=== PATIENT | female | born 1950 | race African-American/Black ===

== ENCOUNTER 2016-08-06 13:34 | Inpatient (IN) | payer BC, MEDICARE ==
[~2016-08-06] VITALS: Ht 167.6 cm; Wt 59.0 kg
[2016-08-06 13:40] VITALS: BP 144/82
[2016-08-06 14:10] LABS: BASOPHILS % (AUTO) 0.7 % (0.0-2.0); EOSINOPHILS % (AUTO) 2.7 % (0.0-3.0); LYMPHOCYTES % (AUTO) 35.4 % (20.0-45.0); MEAN CORPUSCULAR HEMOGLOBIN 31.5 PG (27.0-31.0); MEAN CORPUSCULAR HGB CONC 32.2 G/DL (32.0-36.0); MEAN CORPUSCULAR VOLUME 98 FL (80-99); MEAN PLATELET VOLUME 10.4 FL (6.5-10.1); MONOCYTES % (AUTO) 8.5 % (1.0-10.0); NEUTROPHILS % (AUTO) 52.8 % (45.0-75.0); PLATELET COUNT 170 K/UL (150-450); RED BLOOD COUNT 3.97 M/UL (4.20-5.40); RED CELL DISTRIBUTION WIDTH 12.2 % (11.6-14.8); WHITE BLOOD COUNT 5.1 K/UL (4.8-10.8)
--- NOTE | 2016-08-06 14:16 | Diagnostic Imaging Report ---
Indication: Chest pain Technique: Single portable AP view of the chest. Findings: Comparison: None. The bones and extra pulmonary soft tissues, cardiomediastinal silhouette, pulmonary vasculature and parenchyma, and pleural surfaces are unremarkable. IMPRESSION: Negative portable AP chest.
[2016-08-06 14:22] LABS: PROTHROMBIN TIME 10.5 SEC (9.30-11.50)
[2016-08-06 14:28] LABS: TROPONIN I < 0.30 ng/mL (<=0.30)
[2016-08-06 14:32] LABS: ALANINE AMINOTRANSFERASE 33 U/L (3-33); ALBUMIN/GLOBULIN RATIO 1.9 (1.0-2.7); ANION GAP 12 (5-15); ASPARTATE AMINO TRANSFERASE 25 U/L (5-40); CALCIUM 9.7 mg/dL (8.6-10.2); CARBON DIOXIDE 27 mEQ/L (20-30); CHLORIDE 104 mEQ/L (98-107); CREATININE 0.9 mg/dL (0.5-0.9); GLOMERULAR FILTRATION RATE > 60 mL/min (>60); HEMOLYSIS 3; LIPASE 47 U/L (< 60); SODIUM 143 mEQ/L (135-145); TOTAL PROTEIN 6.1 g/dL (6.6-8.7)
[2016-08-06 14:43] LABS: CKMB < 1.5 ng/mL (< 3.8)
[2016-08-06] MEDS ORDERED: Nitroglycerin Subl 0.4mg tab (Bottle Of 25) SL PRN ×2 (14:45→18:00)
[2016-08-06 15:30] VITALS: BP 145/67
[2016-08-06] MEDS ORDERED: NKM (16:07)
[2016-08-06 17:30] VITALS: BP 128/72
[2016-08-06] MEDS ORDERED: DuoNeb 0.5-3(2.5)mg/3ml neb HHN PRN (18:00)
[2016-08-06] MEDS ORDERED: Miralax 17gm pkt ORAL PRN (18:00)
[2016-08-06] MEDS ORDERED: Morphine Sulfate 2mg/ml Inj IVP PRN (18:00)
[2016-08-06] MEDS ORDERED: Ketorolac 30mg Inj IV PRN (18:00)
[2016-08-06] MEDS ORDERED: Enalaprilat 2.5mg/2ml Inj IV PRN (18:00)
[2016-08-06] MEDS ORDERED: Diltiazem 25mg/5ml IV PRN (18:00)
[2016-08-06 18:54] VITALS: BP 149/66
--- NOTE | 2016-08-06 19:01 | Emergency Room Report ---
History of Present Illness General Chief Complaint: Chest Pain Source: Patient Present Illness HPI 66-year-old female presents to ED evaluation. Patient states she's been having chest pain for the last few weeks. On and off. Pressure-like, left-sided, radiating down the left arm. Denies shortness of breath. Denies fevers chills or cough. Patient states she had similar episodes in the past and was told that she has an arrhythmia. Is currently not on any medications. Denies smoking or drug use. No aggravating relieving factors. Denies any other associated symptom Allergies: Coded Allergies: No Known Allergies (Unverified , 08/06/16) Patient History Past Medical History: none Past Surgical History: none Pertinent Family History: none Social History: Denies: alcohol use, drug use, smoking Now: No Immunizations: UTD Reviewed Nursing Documentation: PMH: Agreed, PSxH: Agreed Nursing Documentation-PMH Past Medical History: No Stated History Review of Systems All Other Systems: negative except mentioned in HPI Physical Exam Vital Signs Date Time Temp Pulse Resp B/P Pulse Ox O2 Delivery O2 Flow Rate FiO2 08/06/16 13:39 98.1 78 16 151/90 97 Room Air Sp02 EP Interpretation: reviewed, normal General Appearance: no apparent distress, alert, GCS 15, non-toxic Head: normocephalic, atraumatic Eyes: bilateral eye PERRL, bilateral eye normal inspection ENT: hearing grossly normal, normal pharynx, no angioedema, normal voice Neck: full range of motion, supple/symm/no masses Respiratory: chest non-tender, lungs clear, normal breath sounds, speaking full sentences Cardiovascular #1: regular rate, rhythm, no edema Cardiovascular #2: 2+ carotid (R), 2+ carotid (L), 2+ radial (R), 2+ radial (L) , 2+ dorsalis pedis (R), 2+ dorsalis pedis (L) Gastrointestinal: normal bowel sounds, non tender, soft, non-distended, no guarding, no rebound Rectal: deferred Genitourinary: normal inspection, no CVA tenderness Musculoskeletal: back normal, gait/station normal, normal range of motion, non- tender Neurologic: alert, oriented x3, responsive, motor strength/tone normal, sensory intact, speech normal Psychiatric: judgement/insight normal, memory normal, mood/affect normal, no suicidal/homicidal ideation Reflexes: 3+ bicep (R), 3+ bicep (L), 3+ tricep (R), 3+ tricep (L), 3+ knee (R) , 3+ knee (L) Skin: normal color, no rash, warm/dry, well hydrated Lymphatic: no adenopathy Medical Decision Making Diagnostic Impression: Primary Impression: Acute coronary syndrome Additional Impression: PVC (premature ventricular contraction) ER Course Hospital Course 66-year-old female presents ED complaining of left-sided chest pain Differential diagnoses include: VT/unstable angina, contusion, muscle strain, PTX, rib fracture Clinical course Patient placed on stretcher. on conveyor monitor. After initial history and physical I ordered labs, EKG, chest x-ray, NTG labs reviewed- no leukocytosis, hb/hct stable, electrolytes ok, trop negative EKG - PVCs, no acute ischemic changes Chest x-ray- unremarkable Given that chest pain improved with nitroglycerin and given presentation I believe patient should be admitted for observation. Given aspirin Case discussed with Dr. Alvarez and he agreed to accept the patient to his service for further care and support I. I feel this is a highly complex case requiring extensive working including EKG/Rhythm strip, Xray/CT/US, Blood/urine lab work, repeat exams while in ED, and administration of strong opiates/narcotics for pain control, admission to hospital or close patient follow up. Diagnosis - ACS, PVCs admitted to telemetry in serious condition Labs Test 08/06/16 13:55 White Blood Count 5.1 K/UL (4.8-10.8) Red Blood Count 3.97 M/UL (4.20-5.40) Hemoglobin 12.5 G/DL (12.0-16.0) Hematocrit 38.9 % (37.0-47.0) Mean Corpuscular Volume 98 FL (80-99) Mean Corpuscular Hemoglobin 31.5 PG (27.0-31.0) Mean Corpuscular Hemoglobin Concent 32.2 G/DL (32.0-36.0) Red Cell Distribution Width 12.2 % (11.6-14.8) Platelet Count 170 K/UL (150-450) Mean Platelet Volume 10.4 FL (6.5-10.1) Neutrophils (%) (Auto) 52.8 % (45.0-75.0) Lymphocytes (%) (Auto) 35.4 % (20.0-45.0) Monocytes (%) (Auto) 8.5 % (1.0-10.0) Eosinophils (%) (Auto) 2.7 % (0.0-3.0) Basophils (%) (Auto) 0.7 % (0.0-2.0) Prothrombin Time 10.5 SEC (9.30-11.50) Prothromb Time International Ratio 1.0 (0.9-1.1) Activated Partial Thromboplast Time 25 SEC (23-33) Sodium Level 143 mEQ/L (135-145) Potassium Level 4.0 mEQ/L (3.4-4.9) Chloride Level 104 mEQ/L (98-107) Carbon Dioxide Level 27 mEQ/L (20-30) Anion Gap 12 (5-15) Blood Urea Nitrogen 18 mg/dL (7-23) Creatinine 0.9 mg/dL (0.5-0.9) Estimat Glomerular Filtration Rate > 60 mL/min (>60) Glucose Level 117 mg/dL (74-106) Calcium Level 9.7 mg/dL (8.6-10.2) Total Bilirubin 0.3 mg/dL (0.0-1.2) Aspartate Amino Transf (AST/SGOT) 25 U/L (5-40) Alanine Aminotransferase (ALT/SGPT) 33 U/L (3-33) Alkaline Phosphatase 76 U/L (35-104) Total Creatine Kinase 66 U/L (26-140) Creatine Kinase MB < 1.5 ng/mL (< 3.8) Creatine Kinase MB Relative Index Troponin I < 0.30 ng/mL (<=0.30) Pro-B-Type Natriuretic Peptide 382 pg/mL (0-125) Total Protein 6.1 g/dL (6.6-8.7) Albumin 4.0 g/dL (3.5-5.2) Globulin 2.1 g/dL Albumin/Globulin Ratio 1.9 (1.0-2.7) Lipase 47 U/L (< 60) EKG Diagnostic Results Rate: normal Rhythm: NSR ST Segments: no acute changes ASA given to the pt in ED: No Rhythm Strip Diag. Results EP Interpretation: yes Rhythm: NSR, no ectopy, other - PVCs Chest X-Ray Diagnostic Results EP Interpretation: No Findings: no consolidation, no effusion, no pneumothorax, no acute cardiopulmonary disease Number of Views: 1 Last Vital Signs Date Time Temp Pulse Resp B/P Pulse Ox O2 Delivery O2 Flow Rate FiO2 08/06/16 18:54 96.5 78 18 149/66 100 Room Air Status: improved Disposition: ADMITTED INPATIENT Condition: Serious Referrals: NOT CHOSEN IPA/,REFERRING (PCP) TILA SANABRIA M.D. August 06, 2016 19:01
[2016-08-06 20:00] VITALS: BP 157/99
[2016-08-06 20:56] LABS: TROPONIN I < 0.30 ng/mL (<=0.30)
[2016-08-06] MEDS: Heparin 5000 units/ml inj SUBQ SCH (21:00)
[2016-08-07 00:10] VITALS: BP 138/69
[2016-08-07 04:30] VITALS: BP 149/75
[2016-08-07 07:22] LABS: BASOPHILS % (AUTO) 1.1 % (0.0-2.0); LYMPHOCYTES % (AUTO) 43.4 % (20.0-45.0); MEAN CORPUSCULAR HEMOGLOBIN 31.6 PG (27.0-31.0); MEAN CORPUSCULAR VOLUME 99 FL (80-99); MONOCYTES % (AUTO) 8.6 % (1.0-10.0); NEUTROPHILS % (AUTO) 42.9 % (45.0-75.0); PLATELET COUNT 165 K/UL (150-450); RED BLOOD COUNT 4.13 M/UL (4.20-5.40); RED CELL DISTRIBUTION WIDTH 12.3 % (11.6-14.8); WHITE BLOOD COUNT 4.3 K/UL (4.8-10.8)
[2016-08-07 07:35] LABS: CHOLESTEROL 212 mg/dL (< 200); CHOLESTEROL/HDL RATIO 2.7 (3.3-4.4); CRP QUANT < 0.3 mg/dL (< 0.5); HEMOLYSIS 7; LDL CHOLESTEROL (CALC.) 121 mg/dL (60-99)
[2016-08-07 07:40] LABS: PROTHROMBIN TIME 10.3 SEC (9.30-11.50)
[2016-08-07 08:00] VITALS: BP 148/88
[2016-08-07 08:02] LABS: TROPONIN I < 0.30 ng/mL (<=0.30)
--- NOTE | 2016-08-07 08:41 | Cardiology Progress Note ---
Assessment/Plan Assessment/Plan The patient is seen and examined, full consult note is dictated. Objective Last 24 Hour Vital Signs Date Time Temp Pulse Resp B/P Pulse Ox O2 Delivery O2 Flow Rate FiO2 08/07/16 08:00 97.9 43 20 148/88 98 Room Air 08/07/16 04:30 97.9 48 19 149/75 98 Room Air 08/07/16 04:00 62 08/07/16 00:10 98.8 56 19 138/69 98 Room Air 08/07/16 00:00 70 08/06/16 20:00 97.0 56 18 157/99 99 Room Air 08/06/16 20:00 66 08/06/16 18:54 96.5 78 18 149/66 100 Room Air 08/06/16 18:31 75 17 133/72 100 Room Air 08/06/16 17:30 98.3 79 28 128/72 100 Room Air 08/06/16 15:30 98.1 66 18 145/67 100 Room Air 08/06/16 14:45 161/83 08/06/16 13:40 79 15 Room Air 08/06/16 13:40 98.2 79 15 144/82 100 Room Air 08/06/16 13:39 98.1 78 16 151/90 97 Room Air Intake and Output 08/06/16 08/07/16 19:00 07:00 Intake Total 500 ml 1000 ml Balance 500 ml 1000 ml Intake Oral 0 ml IV Total 500 ml Other 1000 ml # Voids 1 3 Laboratory Tests Test 08/06/16 13:55 08/06/16 20:05 08/07/16 06:20 White Blood Count 5.1 K/UL (4.8-10.8) 4.3 K/UL (4.8-10.8) L Red Blood Count 3.97 M/UL (4.20-5.40) L 4.13 M/UL (4.20-5.40) L Hemoglobin 12.5 G/DL (12.0-16.0) 13.1 G/DL (12.0-16.0) Hematocrit 38.9 % (37.0-47.0) 40.8 % (37.0-47.0) Mean Corpuscular Volume 98 FL (80-99) 99 FL (80-99) Mean Corpuscular Hemoglobin 31.5 PG (27.0-31.0) H 31.6 PG (27.0-31.0) H Mean Corpuscular Hemoglobin Concent 32.2 G/DL (32.0-36.0) 32.0 G/DL (32.0-36.0) Red Cell Distribution Width 12.2 % (11.6-14.8) 12.3 % (11.6-14.8) Platelet Count 170 K/UL (150-450) 165 K/UL (150-450) Mean Platelet Volume 10.4 FL (6.5-10.1) H 11.0 FL (6.5-10.1) H Neutrophils (%) (Auto) 52.8 % (45.0-75.0) 42.9 % (45.0-75.0) L Lymphocytes (%) (Auto) 35.4 % (20.0-45.0) 43.4 % (20.0-45.0) Monocytes (%) (Auto) 8.5 % (1.0-10.0) 8.6 % (1.0-10.0) Eosinophils (%) (Auto) 2.7 % (0.0-3.0) 4.0 % (0.0-3.0) H Basophils (%) (Auto) 0.7 % (0.0-2.0) 1.1 % (0.0-2.0) Prothrombin Time 10.5 SEC (9.30-11.50) 10.3 SEC (9.30-11.50) Prothromb Time International Ratio 1.0 (0.9-1.1) 1.0 (0.9-1.1) Activated Partial Thromboplast Time 25 SEC (23-33) 25 SEC (23-33) Sodium Level 143 mEQ/L (135-145) Potassium Level 4.0 mEQ/L (3.4-4.9) Chloride Level 104 mEQ/L (98-107) Carbon Dioxide Level 27 mEQ/L (20-30) Anion Gap 12 (5-15) Blood Urea Nitrogen 18 mg/dL (7-23) Creatinine 0.9 mg/dL (0.5-0.9) Estimat Glomerular Filtration Rate > 60 mL/min (>60) Glucose Level 117 mg/dL (74-106) H Calcium Level 9.7 mg/dL (8.6-10.2) Total Bilirubin 0.3 mg/dL (0.0-1.2) Aspartate Amino Transf (AST/SGOT) 25 U/L (5-40) Alanine Aminotransferase (ALT/SGPT) 33 U/L (3-33) Alkaline Phosphatase 76 U/L (35-104) Total Creatine Kinase 66 U/L (26-140) Creatine Kinase MB < 1.5 ng/mL (< 3.8) Creatine Kinase MB Relative Index Troponin I < 0.30 ng/mL (<=0.30) < 0.30 ng/mL (<=0.30) < 0.30 ng/mL (<=0.30) Pro-B-Type Natriuretic Peptide 382 pg/mL (0-125) H Total Protein 6.1 g/dL (6.6-8.7) L Albumin 4.0 g/dL (3.5-5.2) Globulin 2.1 g/dL Albumin/Globulin Ratio 1.9 (1.0-2.7) Lipase 47 U/L (< 60) C-Reactive Protein, Quantitative < 0.3 mg/dL (< 0.5) Triglycerides Level 54 mg/dL (< 150) Cholesterol Level 212 mg/dL (< 200) H LDL Cholesterol 121 mg/dL (60-99) H HDL Cholesterol 80 mg/dL (> 60) H Cholesterol/HDL Ratio 2.7 (3.3-4.4) L Thyroid Stimulating Hormone (TSH) 1.250 uIU/mL (0.300-4.500) POONAM KAUR August 07, 2016 08:41
[2016-08-07] MEDS: Heparin 5000 units/ml inj SUBQ SCH (09:00)
[2016-08-07] MEDS ORDERED: Aspirin Baby 81mg ORAL SCH (09:00)
[2016-08-07 12:14] VITALS: BP 138/68
--- NOTE | 2016-08-07 13:31 | Consultation ---
History of Present Illness General Date patient seen: August 07, 2016 Chief Complaint: Chest Pain Present Illness HPI 66-year-old female presents to ED evaluation of chest pain for the last few weeks. The pain is pressure-like, left-sided, radiating down the left arm. Denies shortness of breath. Denies fevers chills or cough. she is admitted to telemetry for further work up. Allergies: Coded Allergies: No Known Allergies (Unverified , 08/06/16) Medication History Scheduled No Known Medications* (NKM - No Known Medications*), 0 ., (Reported) Patient History Healthcare decision maker Resuscitation status Full Code Advanced Directive on File No Past Medical/Surgical History Past Medical/Surgical History: (1) PVC (premature ventricular contraction) Review of Systems All Other Systems: negative except mentioned in HPI Physical Exam General Appearance: WD/WN Lines, tubes and drains: peripheral HEENT: normocephalic, atraumatic Neck: non-tender, normal alignment Respiratory/Chest: chest wall non-tender, lungs clear Cardiovascular/Chest: normal peripheral pulses, normal rate Abdomen: normal bowel sounds, non tender, hyperactive bowel sounds Genitourinary/Rectal: normal rectal exam Extremities: normal range of motion Last 24 Hour Vital Signs Date Time Temp Pulse Resp B/P Pulse Ox O2 Delivery O2 Flow Rate FiO2 08/07/16 12:14 97.3 64 20 138/68 Room Air 08/07/16 11:27 74 08/07/16 08:00 97.9 43 20 148/88 98 Room Air 08/07/16 07:24 69 08/07/16 07:00 60 16 Room Air 08/07/16 04:30 97.9 48 19 149/75 98 Room Air 08/07/16 04:00 62 08/07/16 00:10 98.8 56 19 138/69 98 Room Air 08/07/16 00:00 70 08/06/16 20:00 97.0 56 18 157/99 99 Room Air 08/06/16 20:00 66 08/06/16 18:54 96.5 78 18 149/66 100 Room Air 08/06/16 18:31 75 17 133/72 100 Room Air 08/06/16 17:30 98.3 79 28 128/72 100 Room Air 08/06/16 15:30 98.1 66 18 145/67 100 Room Air 08/06/16 14:45 161/83 08/06/16 13:40 79 15 Room Air 08/06/16 13:40 98.2 79 15 144/82 100 Room Air 08/06/16 13:39 98.1 78 16 151/90 97 Room Air Intake and Output 08/06/16 08/07/16 19:00 07:00 Intake Total 500 ml 1000 ml Balance 500 ml 1000 ml Intake Oral 0 ml IV Total 500 ml Other 1000 ml # Voids 1 3 Laboratory Tests Test 08/06/16 13:55 08/06/16 20:05 08/07/16 06:20 White Blood Count 5.1 K/UL (4.8-10.8) 4.3 K/UL (4.8-10.8) L Red Blood Count 3.97 M/UL (4.20-5.40) L 4.13 M/UL (4.20-5.40) L Hemoglobin 12.5 G/DL (12.0-16.0) 13.1 G/DL (12.0-16.0) Hematocrit 38.9 % (37.0-47.0) 40.8 % (37.0-47.0) Mean Corpuscular Volume 98 FL (80-99) 99 FL (80-99) Mean Corpuscular Hemoglobin 31.5 PG (27.0-31.0) H 31.6 PG (27.0-31.0) H Mean Corpuscular Hemoglobin Concent 32.2 G/DL (32.0-36.0) 32.0 G/DL (32.0-36.0) Red Cell Distribution Width 12.2 % (11.6-14.8) 12.3 % (11.6-14.8) Platelet Count 170 K/UL (150-450) 165 K/UL (150-450) Mean Platelet Volume 10.4 FL (6.5-10.1) H 11.0 FL (6.5-10.1) H Neutrophils (%) (Auto) 52.8 % (45.0-75.0) 42.9 % (45.0-75.0) L Lymphocytes (%) (Auto) 35.4 % (20.0-45.0) 43.4 % (20.0-45.0) Monocytes (%) (Auto) 8.5 % (1.0-10.0) 8.6 % (1.0-10.0) Eosinophils (%) (Auto) 2.7 % (0.0-3.0) 4.0 % (0.0-3.0) H Basophils (%) (Auto) 0.7 % (0.0-2.0) 1.1 % (0.0-2.0) Prothrombin Time 10.5 SEC (9.30-11.50) 10.3 SEC (9.30-11.50) Prothromb Time International Ratio 1.0 (0.9-1.1) 1.0 (0.9-1.1) Activated Partial Thromboplast Time 25 SEC (23-33) 25 SEC (23-33) Sodium Level 143 mEQ/L (135-145) Potassium Level 4.0 mEQ/L (3.4-4.9) Chloride Level 104 mEQ/L (98-107) Carbon Dioxide Level 27 mEQ/L (20-30) Anion Gap 12 (5-15) Blood Urea Nitrogen 18 mg/dL (7-23) Creatinine 0.9 mg/dL (0.5-0.9) Estimat Glomerular Filtration Rate > 60 mL/min (>60) Glucose Level 117 mg/dL (74-106) H Calcium Level 9.7 mg/dL (8.6-10.2) Total Bilirubin 0.3 mg/dL (0.0-1.2) Aspartate Amino Transf (AST/SGOT) 25 U/L (5-40) Alanine Aminotransferase (ALT/SGPT) 33 U/L (3-33) Alkaline Phosphatase 76 U/L (35-104) Total Creatine Kinase 66 U/L (26-140) Creatine Kinase MB < 1.5 ng/mL (< 3.8) Creatine Kinase MB Relative Index Troponin I < 0.30 ng/mL (<=0.30) < 0.30 ng/mL (<=0.30) < 0.30 ng/mL (<=0.30) Pro-B-Type Natriuretic Peptide 382 pg/mL (0-125) H Total Protein 6.1 g/dL (6.6-8.7) L Albumin 4.0 g/dL (3.5-5.2) Globulin 2.1 g/dL Albumin/Globulin Ratio 1.9 (1.0-2.7) Lipase 47 U/L (< 60) C-Reactive Protein, Quantitative < 0.3 mg/dL (< 0.5) Triglycerides Level 54 mg/dL (< 150) Cholesterol Level 212 mg/dL (< 200) H LDL Cholesterol 121 mg/dL (60-99) H HDL Cholesterol 80 mg/dL (> 60) H Cholesterol/HDL Ratio 2.7 (3.3-4.4) L Thyroid Stimulating Hormone (TSH) 1.250 uIU/mL (0.300-4.500) Height (Feet): 5 Height (Inches): 6.00 Weight (Pounds): 130 Medications Current Medications Medications (Trade) Dose Ordered Sig/Kush Route PRN Reason Start Time Stop Time Status Last Admin Dose Admin Acetaminophen (Tylenol) 650 mg Q4H PRN ORAL FEVER 08/06/16 18:00 09/05/16 17:59 Albuterol/ Ipratropium (DuoNeb 0.5-3(2.5)mg/3ml) 3 ml Q4H PRN HHN Shortness of Breath 08/06/16 18:00 08/11/16 17:59 Aspirin (ASA) 162 mg DAILY ORAL 08/07/16 09:00 09/06/16 08:59 08/07/16 09:10 Diltiazem HCl (Cardizem) 10 mg Q1H PRN IV HR > 120 08/06/16 18:00 09/05/16 17:59 Enalaprilat (Vasotec) 2.5 mg Q6H PRN IV SBP > 160 08/06/16 18:00 09/05/16 17:59 Heparin Sodium (Porcine) (Heparin 5000 units/ml) 5,000 units EVERY 12 HOURS SUBQ 08/06/16 21:00 09/05/16 20:59 Morphine Sulfate (Morphine Sulfate) 2 mg Q4H PRN IVP severe Pain (Pain Scale 7-10) 08/06/16 18:00 08/13/16 17:59 Nitroglycerin (Ntg) 0.4 mg Q5MIN X 3 DOSES PRN SL Prn Chest Pain 08/06/16 18:00 09/05/16 17:59 Ondansetron HCl (Zofran) 4 mg Q6H PRN IVP Nausea & Vomiting 08/06/16 18:00 09/05/16 17:59 Pantoprazole (Protonix) 40 mg DAILY ORAL 08/07/16 09:00 09/06/16 08:59 08/07/16 09:10 Polyethylene Glycol (Miralax) 17 gm DAILYPRN PRN ORAL Constipation 08/06/16 18:00 09/05/16 17:59 Temazepam (Restoril) 15 mg HSPRN PRN ORAL Insomnia 08/06/16 18:00 08/13/16 17:59 Assessment/Plan Problem List: (1) Acute coronary syndrome ICD Codes: I24.9 - Acute ischemic heart disease, unspecified SNOMED: 316745794 (2) PVC (premature ventricular contraction) ICD Codes: I49.3 - Ventricular premature depolarization SNOMED: 06611615 Assessment/Plan serial ekg cardio to see serial torponin echocardiogram BROCK ZACARIAS August 07, 2016 13:31
[2016-08-07 16:07] VITALS: BP 144/84
--- NOTE | 2016-08-07 17:02 | History & Physical ---
History and Physical History & Physicial Dictated for Int Med-Dr Alvarez no. [id number]. VERNON ESCOBAR August 07, 2016 17:01
--- NOTE | 2016-08-07 17:46 | Consultation ---
DATE OF CONSULTATION: 08/07/2016 CARDIOLOGY CONSULTATION ATTENDING PHYSICIAN: Virgil Alvarez M.D. REFERRING PHYSICIAN: Carlos Prado M.D. REASON FOR CONSULTATION: Management of chest pain. HISTORY OF PRESENT ILLNESS: The patient is a very pleasant 66-year-old female, who presents to the hospital with on and off the chest pain, as is described as sharp in the left precordial area associated with left arm numbness and there are times that the patient does have left arm numbness without having chest pain. She states that she does not have any hypertension or diabetes. On arrival to the hospital, however, her blood pressure was 151/90 mmHg, which she attributes to stress due to anticipation for admission to the hospital. She has been told that she has cardiac arrhythmias, but she is not currently on any medications for it. She denies any dyspnea on exertion or exercise tolerance. She works out on a regular basis without having any limitations. PAST MEDICAL HISTORY: Cardiac arrhythmias. PAST SURGICAL HISTORY: None. ALLERGIES: No known drug allergies. SOCIAL HISTORY: Denies any tobacco or illicit drug use. She is a moderate drinker and drinks spirits as well as drinking wine every other day. FAMILY HISTORY: Mother had pacemaker at the age of 70. Father also had a history of heart attack after age of 60 requiring also pacemaker implantation. REVIEW OF SYSTEMS: HEENT: Denies any headache, diplopia, or blurred vision. Constitutional: Denies any fever, chills, night sweats, or weight loss. Cardiovascular: She feels thumping of heart rate, skipped beats, sometimes fluttering of the heart periodically, on and off chest pain as mentioned above. Denies any shortness of breath with exertion. Denies any PND, orthopnea, or leg swelling. she reports to occasional feeling of loss of consciousness, but she never fainted or lost consciousness. Pulmonary: Denies any cough, hemoptysis, or wheezing. Gastrointestinal: Denies any nausea, vomiting, diarrhea, constipation, abdominal pain, or GI bleed. Genitourinary: Denies any hematuria, dysuria, or incontinence. Neurology: Denies any motor dysfunction, sensory deficit, or altered speech. PHYSICAL EXAMINATION: GENERAL: The patient is a very unfortunate 66-year-old female, in no apparent respiratory distress, alert and oriented x2. VITAL SIGNS: Blood pressure is 151/90, pulse of 78, respirations 16, O2 saturation 97% on room air, and temperature 98.1 degrees Fahrenheit. HEENT: Atraumatic and normocephalic. Anicteric. Pupils are equal, round, and reactive to light and accommodation. Extraocular muscles are intact. NECK: JVP is less than 5 cm. No carotid bruits. Carotid upstrokes 2+ bilaterally. CARDIOVASCULAR: Normal S1 and S2. Irregular rhythm. No murmurs, gallops, or rubs. PMI is at fourth intercostal space in the midclavicular line. LUNGS: Clear to auscultation bilaterally. ABDOMEN: Soft, nontender, and nondistended. No hepatosplenomegaly. Positive bowel sounds. EXTREMITIES: No evidence of edema, clubbing, or cyanosis. LABORATORY AND DIAGNOSTIC DATA: WBC is 5.1, hemoglobin of 12.5, hematocrit 38.9 and platelet count is 170,000. Sodium 143, potassium 4.0, chloride 104, bicarbonate 27, BUN 18, creatinine 0.9 and glucose 117. Calcium is 9.7. ProBNP was 382 and troponin I x3 negative. Total cholesterol was 212, LDL was 121, and HDL of 80. Chest x-ray showed no acute cardiopulmonary disease. A 12-lead electrocardiogram shows sinus rhythm at a rate of 63. Normal axis. There is frequent ventricular premature complexes as well as a few atrial premature complexes. There is no acute ST and T-wave abnormalities. ASSESSMENT AND PLAN: The patient is a very pleasant 66-year-old female, seen in Cardiology consultation at request of Dr. Prado and Dr. Alvarez. 1. Chest pain, appears to be atypical. I would like to however proceed with obtaining a stress imaging study. The reason being the presence of the ventricular premature complex and also had a very vague history of possible presyncope. 1.1. The patient does not have any other risk factors besides age. Her LDL is around 121, which is probably normal in view of low likelihood of coronary artery disease based on her risk factors. Further therapeutic and diagnostic decision will be based on the results of the stress test. 1.2. We will also obtain 2D echocardiography for assessment of LV systolic and diastolic function. 2. Frequent single ventricular premature complexes. The patient was given reassurance, however, was given the option of using a beta-pricilla for controlling of this arrhythmias. 3. High blood pressure reading. Blood pressure on arrival to the emergency department was elevated. The patient does not have any diagnosis of hypertension. It seems that the blood pressure at throughout her hospitalization so far seems to be slightly elevated. I would believe that beta-pricilla would be the drug of choice in view of the premature ventricular contractions. 4. Single atrial premature complexes, also seen on 12-lead electrocardiogram. I would like to thank, Dr. Prado and Dr. Alvarez, for the courtesy of this consultation. Rusty Humphreys M.D. DR: KEITH JOB#: [id number] CC:
--- NOTE | 2016-08-07 20:16 | History and Physical Report ---
DATE OF ADMISSION: 08/06/2016 CHIEF COMPLAINT: The patient is a 66-year-old year female, presents with complaint of chest pain. HISTORY OF PRESENT ILLNESS: The patient states she has chest pain on and off. The patient states she had one episode couple of days ago while sitting at her computer. The patient states that the pain was sharp. It was located over the left breast area. The patient states last evening, she was sitting at her computer. The patient again experienced left-sided chest pain. This time, the pain radiated to the left arm. She states the pain was more numbness than actual pain in the arm. The patient presented to [facility] emergency room. The patient was admitted for chest pain to rule out acute coronary syndrome. PAST MEDICAL HISTORY: The patient denies. PAST SURGICAL HISTORY: The patient denies. CURRENT MEDICATIONS: The patient denies. ALLERGIES: No known drug allergies. SOCIAL HISTORY: The patient is and works as an actress/model. The patient denies tobacco use. The patient admits to alcohol use of 2 to 3 drinks 3 to 4 times weekly. The patient denies other drug abuse. The patient specifically denies cocaine use. REVIEW OF SYSTEMS: Constitutional: The patient denies weight loss or weight gain. The patient denies fevers or chills. HEENT: The patient denies ear or throat pain. The patient denies headache. Cardiovascular: The patient complains of chest pain as above. The patient denies palpitations. Chest: The patient denies wheezes or shortness of breath. Abdomen: The patient denies nausea, vomiting, diarrhea, or constipation. Genitourinary: The patient denies dysuria or increased frequency of urination. Neuromuscular: The patient denies seizures or generalized weakness. PHYSICAL EXAMINATION: VITAL SIGNS: Temperature 97.9 degrees, respirations 20, pulse 43 to 74, and blood pressure 148/80. GENERAL: The patient is well-developed and well-nourished female, in no apparent distress. HEENT: Eyes, pupils are equal and responsive to light and accommodation. Extraocular movements are intact. NECK: Supple without lymphadenopathy. CHEST: Lungs are clear to auscultation bilaterally without wheezes or rales. CARDIOVASCULAR: Regular rate. S1 and S2 normal without murmurs, rubs, or gallops. ABDOMEN: Soft, nontender, and nondistended. Positive bowel sounds. No hepatosplenomegaly. Currently, no rebound or guarding. EXTREMITIES: Negative for clubbing, cyanosis, or edema. RECTAL: Refused. GENITAL: Refused. NEUROLOGIC: Cranial nerves II through XII are grossly intact without focal deficits. Motor strength is 5/5 bilaterally. Deep tendon reflexes are 2+ plantar. LABORATORY STUDIES: WBC 5.1, hemoglobin 12.5 hematocrit 38.9, and platelets 170,000. Sodium 143, potassium 4.0, chloride 104, CO2 27, BUN 18, creatinine 0.9, and glucose 117. Troponin less than 0.3. BNP slightly elevated at 382. Echocardiogram revealed an ejection fraction of 50%. A treadmill stress test was reported as nonischemic. ASSESSMENT: This is a 66-year-old female, 1. Chest pain. 2. Left arm numbness. TREATMENT: 1. Chest pain/left arm weakness. A Cardiology consultation has been obtained with Dr. Rusty Humphreys. We will follow recommendations of Dr. Humphreys. Initial troponin level was negative. Treadmill stress test was negative. The patient may be discharged later on today if approved by Dr. Humphreys. Leobardo Shay M.D. DR: Toby JOB#: [id number] CC:
--- NOTE | 2016-08-09 14:43 | Cardiology Report ---
APPROVED REPORT EXAM: Two-dimensional and M-mode echocardiogram with Doppler and color Doppler. INDICATION Left ventricular function M-Mode DIMENSIONS IVSd0.9 (0.7-1.1cm)Left Atrium (MM)5.5 (1.6-4.0cm) LVDd5.4 (3.5-5.6cm)Aortic Root3.5 (2.0-3.7cm) PWd2.0 (0.7-1.1cm)Aortic Cusp Exc.2.4 (1.5-2.0cm) LVDs4.1 (2.5-4.0cm) PWs2.5 cm Technically difficult study due to poor acoustic windows. Normal left ventricular chamber size, systolic function and wall motion except midl septal hypokinesis Left ventricular ejection fraction estimated to be 50%. Mild left ventricular hypertrophy. No evidence of pericardial fat or effusion. Right cardiac chamber sizes are within normal limits. Moderate left atrial enlargement by 2D. Focal aortic valve sclerosis with adequate cusp excursion Thickened mitral valve leaflets with normal excursion. Mitral annulus and aortic root calcification. Pulmonic valve not well visualized. Normal tricuspid valve structure. IVC is normal in size with physiologic collapse. A color flow and spectral Doppler study was performed and revealed: Trace aortic regurgitation. Mild mitral regurgitation. Left ventricular diastolic dysfunction not obtainable due to arrhythmia. Trace tricuspid regurgitation. Tricuspid systolic velocities suggests peak right ventricular systolic pressure of 14 mmHg
--- NOTE | 2016-08-09 14:51 | Cardiology Report ---
APPROVED REPORT EKG Measurement Heart [id number] Sinus rhythm with frequent premature ventricular complexes and premature atrial complexes Otherwise normal ECG
--- NOTE | 2016-08-10 09:13 | Discharge Summary ---
Discharge Summary Hospital Course Date of Admission August 06, 2016 at 16:42 Date of Discharge August 07, 2016 at 17:29 Admitting Diagnosis palpitations, ACS HPI Kesha Wade is a 66 year old female who was admitted on August 06, 2016 at 16:42 for Palpitations,Acute Coronary Syndrome Hospital Course dc summary #[id number] Discharge Medications Continued Medications: No Known Medications* (NKM - No Known Medications*) . 0 ., 0 Refills Discharge Discharge Disposition Patient was discharged to Home (01) Discharge Diagnoses: Discharge Instructions Discharge Instructions Special Instructions I have been assigned to complete a D/C Summary on this account. I was not involved in the patient management Wilda Toure NP (V[place]te[place]) August 10, 2016 09:13
--- NOTE | 2016-08-10 23:45 | Discharge Summary 2 SIG ---
DATE OF ADMISSION: 08/06/2016 DATE OF DISCHARGE: 08/07/2016 REASON FOR CONSULTATION: The patient is a [id number] patient female, presented to emergency room with chest pain. The patient reported chest pain intermittent for the last few weeks. Chest pain described as pressure-like, left-sided, radiating down her left arm. She denies shortness of breath. Denies exertional shortness of breath. She denies fever. Denies chills. The patient states she had similar episodes in the past and was told that she had arrhythmia. The patient without any past medical history and was not taking any medication. Troponin in the emergency room was negative. EKG shows a normal sinus rhythm with frequent PVC. No acute ischemic changes. Chest x-ray was negative. All laboratory work was unremarkable. Electrolytes stable. No leukocytosis. Stable hemoglobin and hematocrit. ProBNP was 382. Stable LFT. CK 66. Lipase 47. The patient admitted for further management. ADMITTING DIAGNOSES: 1. Chest pain, rule out acute coronary syndrome. 2. Frequent premature ventricular contraction. HOSPITAL COURSE: The patient admitted to telemetry floor. Cardiology consult was requested. Serial troponin were negative. EKG revealed no acute ischemic changes. Therefore, the patient was ruled out for acute coronary syndrome. Echocardiogram revealed ejection fraction of 50% with right ventricular systolic pressure of 14, and evidence of mild left ventricular hypertrophy. According to chalker soles, the patient had no risk factors for coronary artery disease except her age. The patient recommended if symptoms recurred to do the stress test as outpatient. At this point, there is no need for a stress test. TSH was stable. Lipid panel revealed elevated total cholesterol of 212 with elevated LDL of 121. The patient was counseled on low-fat low-cholesterol diet. Per chalker soles, the patient has a low likelihood of coronary artery disease based on her risk factor and at this time consider therapeutic lifestyle changes. The patient noted to have elevated blood pressure. The patient has no history of hypertension, reluctant to start any medication. Hair Designer recommended to start on the low dose beta-pricilla, which the patient was informed, but at this point declined any medication. The patient was stable for discharge due to the chest pain subsided. DVT prophylaxis provided. The patient was on aspirin prophylactically. This improvement of the patient's condition and the patient was discharged in one day. DISCHARGE DIAGNOSES: 1. Atypical chest pain. 2. Frequent premature ventricular contractions. 3. Elevated blood pressure. DISCHARGE MEDICATIONS: None. DISCHARGE INSTRUCTIONS: The patient to follow up with the primary medical doctor. Recommended if chest pain continued to do the stress test as outpatient. Also recommended to check blood pressure as outpatient with primary medical doctor and if still elevated, recommended low dose of beta-pricilla. Virgil Alvarez M.D. I have been assigned to dictate discharge summary on this account and I was not involved in the patient's management. Wilda Fa[facility] centerHeath N.PDania DR: DARION JOB#: [id number] CC:
== END 2016-08-07 17:29 | disposition home or self-care (01) | DRG 313 ==
LOC: EMR 14:10 → 2E 16:42 → EDBEDREQ 17:41
DX: R07.89 Other chest pain (principal); I49.1 Atrial premature depolarization; I49.3 Ventricular premature depolarization
CPT/HCPCS: 36415; 71010; 80053; 80061; 82550; 82553; 83690; 83880; 84443; 84484; 85025; 85610; 85730; 86140; 93005; 93017; 93306; 94664